=== PATIENT | male | born 1995 | race Caucasian/White ===

== ENCOUNTER 2016-08-07 05:20 | Emergency (ER) | payer BC ==
--- NOTE | 2016-08-07 06:04 | ED ---
Garrett Smith Benjamin, scribed for Annabel Guerra MD on 08/07/16 at 0537 . Substance Abuse/Use - HPI Summary HPI Summary: 21yo male BIB police intoxicated. Per police, police was called to pt's apartment because pt was destrying things in his apartment. Pt admits drinking ETOH and smoking tobacco, but denies any other recreational drug use. Limited HPI due to ETOH intoxication. 2208. - History Of Current Complaint Chief Complaint: EDSubstanceAbuse Stated Complaint: ALCOHOL CONSUMPTION Hx Obtained From: Patient, Other: - police Onset/Duration of Drug/ETOH Abuse: Hours Ingestion History: Type/Name Of Drug - ETOH Overdose Characteristics: Oral Severity Initially: Mild Severity Currently: Mild Aggravating Factor(s): Nothing Alleviating Factor(s): Nothing Associated Signs And Symptoms: Negative - Allergies/Home Medications Allergies/Adverse Reactions: Allergies Allergy/AdvReac Type Severity Reaction Status Date / Time Milk Protein Extract Allergy Mild GI Upset Verified 08/31/14 18:02 PMH/Surg Hx/FS Hx/Imm Hx Infectious Disease History: No Infectious Disease History: Denies: Traveled Outside the [place] in Last 30 Days - Family History Known Family History: Positive: Unknown - unable to obtain, pt is intoxicated - Social History Occupation: Student Lives: Alone Alcohol Use: Weekly Substance Use Type: Reports: None Smoking Status (MU): Never Smoked Tobacco Review of Systems - ROS Summary Review of Systems Summary: unable to obtain full ROS due to ETOH intoxication. Psychological: Other - ETOH All Other Systems Reviewed And Are Negative: Yes Physical Exam Triage Information Reviewed: Yes Vital Signs On Initial Exam: Initial Vitals Temp Pulse Resp BP Pulse Ox 98.9 F 120 18 147/89 96 08/07/16 05:25 08/07/16 05:25 08/07/16 05:25 08/07/16 05:25 08/07/16 05:25 Vital Signs Reviewed: Yes Appearance: Positive: Well-Appearing, No Pain Distress, Well-Nourished Skin: Positive: Warm, Skin Color Reflects Adequate Perfusion, Dry Head/Face: Positive: Normal Head/Face Inspection Eyes: Positive: EOMI, BRENDAN ENT: Positive: Hearing grossly normal, Pharynx normal, TMs normal Neck: Positive: Supple, Nontender Respiratory/Lung Sounds: Positive: Clear to Auscultation, Breath Sounds Present. Negative: Rales, Rhonchi, Wheezes Cardiovascular: Positive: RRR. Negative: Murmur, Rub Abdomen Description: Positive: Nontender, Soft. Negative: Distended, Guarding Bowel Sounds: Positive: Present Musculoskeletal: Positive: Normal, Strength/ROM Intact Neurological: Positive: Other - ETOH Intoxication Psychiatric: Positive: Other - ETOH Intoxication Diagnostics - Vital Signs Vital Signs Temp Pulse Resp BP Pulse Ox 08/07/16 05:25 98.9 F 120 18 147/89 96 - Laboratory Lab Statement: Any lab studies that have been ordered have been reviewed, and results considered in the medical decision making process. Course/Dx - Course Course Of Treatment: pt awake and alert will be discharged once we can find a sober ride - Diagnoses Provider Diagnoses: Alcohol intoxication Discharge - Discharge Plan Condition: Stable Disposition: HOME The documentation as recorded by the Garrett kowalski Benjamin accurately reflects the service I personally performed and the decisions made by , Annabel Guerra MD.
--- NOTE | 2016-08-07 10:24 | ED ---
Progress - Progress Note Progress Note: DISCHARGE HOME STABLE WITH FAMILY MEMBER. Course/Dx - Course Course Of Treatment: pt awake and alert will be discharged once we can find a sober ride - Diagnoses Provider Diagnoses: Alcohol intoxication
[2016-08-07 11:44] VITALS: BP 132/72
== END 2016-08-07 11:43 | disposition home or self-care (01) ==
LOC: ED 05:20
DX: F10.129 Alcohol abuse with intoxication, unspecified (principal); Z72.0 Tobacco use
CPT/HCPCS: 99281